=== PATIENT | male | born 1955 | race Asian ===

== ENCOUNTER → 2023-05-15 15:38 | Outpatient (CLI) | payer MEDICARE, OTHER, SELFPAY ==
--- NOTE | 2023-05-15 | DI.MRI.S_ITS ---
PROCEDURE: MR BRAIN (IAC) WWO CON INDICATIONS: Imbalance Dementia TECHNIQUE: Noncontrast sagittal T1 spin echo, axial FLAIR, axial gradient echo, axial diffusion and ADC through the brain. Axial thin-slice 3D CISS, coronal TruFISP, axial T1 spin echo with fat saturation through the internal auditory canals. After the administration of contrast, thin slice axial and coronal T1 spin echo with fat saturation through the internal auditory canals, and axial and coronal and sagittal T1 spin echo with fat saturation through the brain. COMPARISON: None. FINDINGS: Image quality: Excellent. Cerebellopontine angles: No cerebellopontine angle masses. Inner ear structures appear normally formed. No suspicious enhancement in the internal auditory canal or along the course of the 7th cranial nerve. CSF spaces: Ventricles are normal in size and shape. No extra-axial fluid collections. Basal cisterns are patent. Brain: No intracranial bleeds or mass effects. Palencia-white matter interface is intact. No abnormal intracranial enhancement. Diffusion weighted images demonstrate no acute ischemic insults. Brainstem appears normal. Normal intravascular flow voids are present. Note is made of age-appropriate brain parenchymal volume loss and chronic small vessel ischemic changes. Skull and face: Calvarial marrow signal is normal. Orbits appear normal. Sinuses: Sinuses and mastoids are clear. IMPRESSION: No significant abnormality is seen. Specifically, no masses or abnormal enhancement are seen within the cerebellopontine angle cisterns or within the internal auditory canals. Dictated by: Messi Black M.D. on 05/15/2023 at 16:18 Approved by: Messi Black M.D. on 05/15/2023 at 16:19
== END ==
PROVIDERS: Referring Provider Psychiatry & Neurology Neurology; Visit Provider Psychiatry & Neurology Neurology
DX: R41.89 Other symptoms and signs involving cognitive functions and awareness (principal); R26.89 Other abnormalities of gait and mobility
CPT/HCPCS: 70553; A9579

== ENCOUNTER 2025-10-14 16:50 | Emergency (ER) | payer MEDICARE, SELFPAY ==
--- OUTSIDE RECORDS SUMMARY | 2025-04-16 | XMS_ITS ---
Author Organization [facility] Address [address] [place] [id number] Care Team Providers Care Revenue Cycle Consultant Name Role Phone Mayito Main Primary Care Provider [phone] REASON FOR VISIT PTG Medications Medication SIG (Take, Route, Frequency, Duration) Notes Start Date End Date Status Silodosin 8 MG 1 capsule with a meal Orally Once a day Active Finasteride 5 MG 1 tablet Orally Once a day; Duration: 30 day(s) Active OXcarbazepine 300 MG 1 tablet Orally Twice a day Active Clindamycin HCl 300 MG 1 capsule Orally every 6 hrs; Duration: 10 days Not-Taking Trintellix 20 MG 1 tablet Orally Once a day; Duration: 30 day(s) Active Lexapro 10 MG 1 tablet Orally Once a day; Duration: 30 day(s) Not-Taking Trintellix 5 MG 1 tablet Orally Once a day; Duration: 30 day(s) Not-Taking Prostate Support 300-15 MG as directed Orally OTC Not-Takin g Euthyrox 50 MCG TAKE 1 TABLET BY MOUTH ONCE DAILY IN THE MORNING; Duration: 30 Not-Taking Cipro 500 MG 1 tablet Orally every 12 hrs; Duration: 14 days 01/02/2022 Not-Taking Vascepa 1 GM 2 capsules with meals Orally Twice a day; Duration: 30 day(s) Not-Taking Lipitor 40 MG 1 tablet Orally Once a day; Duration: 30 day(s) Not-Taking FLUoxetine HCl 40 MG 1 capsule Orally Once a day; Duration: 30 day(s) Not-Taking Atenolol 25 MG 1 tablet Orally Once a day; Duration: 90 days Not-Taking Lovaza 1 GM 2 capsules Orally Twice a day; Duration: 90 days Not-Taking Boulder 3 1200 MG 1 capsule Orally Once a day Not-Taking Magnesium Citrate 250 MG as directed Orally Not-Takin g Allopurinol 100 MG Take 1 tablet by mouth twice daily; Duration: 30 days due for annual Active Losartan Potassium 50 MG Take 1 tablet by mouth twice daily; Duration: 90 Active Levothyroxine Sodium 50 MCG 1 tab Orally Once a day; Duration: 90 days Active Atorvastatin Calcium 40 MG 1 tablet Orally Once a day; Duration: 90 days 09/12/2021 Active Atenolol 25 MG Take 1 tablet by mouth Orally TWICE DAILY Active Medrol 4 MG as directed Orally as directed; Duration: 6 days 01/14/2024 Active Zetia 10 MG 1 tablet Orally Once a day; Duration: 90 days Active Lutein 20 MG 1 capsule with a meal Orally Once a day Active lamoTRIgine 200 MG 1 tablet Orally Once a day Active Pantoprazole Sodium 40 MG 1 tablet Orally Once a day; Duration: 90 days Active Multivitamin . 1 po qd Activ e Flomax 0.4 MG 1 capsule Orally Once a day; Duration: 30 day(s) Active Aller-Jules 10mg 1 po qd Activ e Encounters Encounter Location Date Provider Diagnosis Mayito Main MD [address] [place] [id number] 04/16/2025 Mayito Main Plan Of Treatment No Information Progress Notes * Brendon HIDALGO ADOB:1955 (70 yo M)Acc No.[id number]:04/16/2025 Nurse Only Visit Patient: Brendon BANERJEE Provider: S tong Main MD :1955 A ge:70 Y S ex:Male Date:04/16/2025 Address:[address] [place], [place] [id number] Subjective: * Chief Complaints: * 1 . PTG. * Medical History: * Medications: T aking Silodosin 8 MG Capsule 1 capsule with a meal Orally Once a day , Taking OXcarbazepine 300 MG Tablet 1 tablet Orally Twice a day , Taking Finasteride 5 MG Tablet 1 tablet Orally Once a day , Taking Trintellix 20 MG Tablet 1 tablet Orally Once a day , Taking Flomax 0.4 MG Capsule 1 capsule Orally Once a day , Taking Aller-Jules 10mg tablet 1 po qd , Taking Pantoprazole Sodium 40 MG Tablet Delayed Release 1 tablet Orally Once a day , Taking lamoTRIgine 200 MG Tablet 1 tablet Orally Once a day , Taking Multivitamin . tablet 1 po qd , Taking Lutein 20 MG Capsule 1 capsule with a meal Orally Once a day , Taking Atenolol 25 MG Tablet Take 1 tablet by mouth Orally TWICE DAILY , Taking Atorvastatin Calcium 40 MG Tablet 1 tablet Orally Once a day , Taking Zetia 10 MG Tablet 1 tablet Orally Once a day , Taking Medrol 4 MG Tablet Therapy Pack as directed Orally as directed , Taking Levothyroxine Sodium 50 MCG Tablet 1 tab Orally Once a day , Taking Losartan Potassium 50 MG Tablet Take 1 tablet by mouth twice daily , Taking Allopurinol 100 MG Tablet Take 1 tablet by mouth twice daily , Notes to Pharmacist: due for annual, Not-Taking Magnesium Citrate 250 MG Capsule as directed Orally , Not-Taking [place]oulder 3 1200 MG Capsule 1 capsule Orally Once a day , Not-Taking Lovaza 1 GM Capsule 2 capsules Orally Twice a day , Not-Taking Atenolol 25 MG Tablet 1 tablet Orally Once a day , Not-Taking Lipitor 40 MG Tablet 1 tablet Orally Once a day , Not-Taking Vascepa 1 GM Capsule 2 capsules with meals Orally Twice a day , Not-Taking FLUoxetine HCl 40 MG Capsule 1 capsule Orally Once a day , Not-Taking Lexapro 10 MG Tablet 1 tablet Orally Once a day , Not-Taking Cipro 500 MG Tablet 1 tablet Orally every 12 hrs , Not-Taking Euthyrox 50 MCG Tablet TAKE 1 TABLET BY MOUTH ONCE DAILY IN THE MORNING , Not-Taking Prostate Support 300-15 MG Tablet as directed Orally , Notes to Pharmacist: OTC, Not- Taking Trintellix 5 MG Tablet 1 tablet Orally Once a day , Not-Taking Clindamycin HCl 300 MG Capsule 1 capsule Orally every 6 hrs Objective: * Vitals: Assessment: Plan: * Treatment: * Billing Information: * Visit Code: * Procedure Codes: * Electronic signature of Mayito Main MD on 10/14/2025 at 04:52 PM PST Sign off status: Pending * Provider: Glenna Main MD Date: 0 04/16/2025 Generated for Su keating/Allie/Krzysztof on: 1 04:52 PM PST
[2025-10-14 17:00] VITALS: BP 125/64; PULSE 70; RESP 16; TEMP 36.3; O2SAT 97; BMI 28.1
--- NOTE | 2025-10-14 17:04 | DI.RAD.S_ITS ---
PROCEDURE: XR CHEST 1V INDICATIONS: Chest Pain TECHNIQUE: One view of the chest was acquired. COMPARISON: None. FINDINGS: Surgical changes and devices: None. Lungs and pleura: Lungs are clear. No pleural effusions or pneumothorax. Mediastinum: Mediastinal contours appear normal. Heart size is normal. Bones and chest wall: No suspicious bony lesions. Overlying soft tissues appear unremarkable. IMPRESSION: No acute cardiopulmonary abnormality is seen. Dictated by: Fitz Landaverde M.D. on 10/14/2025 at 16:54 Approved by: Fitz Landaverde M.D. on 10/14/2025 at 16:54
--- NOTE | 2025-10-14 17:04 | EKG_ITS ---
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
[2025-10-14 17:20] LABS: Add Manual Diff / Slide Review NO; Hematocrit 37.3 % (41-53); Hemoglobin 13.0 g/dL (13.5-17.5); Lymphocytes Absolute Auto 1400 /uL (1100-4500); Mean Corpuscular HGB Conc 34.7 % (30-36); Mean Corpuscular Hemoglobin 33.2 PG (26-34); Mean Corpuscular Volume 95.5 fL (80-100); Platelet Count 212 X10^3/uL (150-400)
[2025-10-14 17:30] LABS: INR 0.9 (0.9-1.3); Prothrombin Time 10.6 SECONDS (9.4-12.5)
[2025-10-14 17:33] LABS: PTT Partial Thromboplastin Tim 30 SECONDS (25.1-36.5)
[2025-10-14 17:35] LABS: Alanine Aminotransferase 32 IU/L (<50); Albumin 4.4 g/dL (3.5-5.0); Albumin Globulin Ratio 1.4 (1.0-2.8); Alkaline Phosphatase 91 U/L (38-126); Blood Urea Nitrogen 14 mg/dL (9-20); Calcium 8.9 mg/dL (8.4-10.2); Carbon Dioxide 23 mmol/L (22-32); Chloride 104 mmol/L (98-107); Creatine Kinase 105 U/L (55-170); Estimated Glomerular Filt Rate > 60 mL/min (>60); Globulin 3.1 g/dL (1.7-4.1); Glucose 166 mg/dL (70-99); HEMOLYSIS 33 (0-50); Lipase 148 U/L (23-300); Magnesium 1.9 mg/dL (1.6-2.3); Potassium 3.8 mmol/L (3.4-5.1); Sodium 135 mmol/L (137-145); Total Protein 7.5 g/dL (6.3-8.2)
[2025-10-14 17:47] LABS: NT-proBNP (BNP-Adult 18+) 92 pg/mL (<125); Troponin I < 0.012 ng/mL (0.01-0.034)
--- NOTE | 2025-10-14 18:07 | ED_ITS ---
HPI - Arrhythmia/Palpitations General Chief Complaint: Arrhythmia/Palpitations Stated Complaint: Arrhythmia Time Seen by Provider: 10/14/25 16:54 Source: patient Mode of arrival: Ambulatory History of Present Illness HPI narrative: 70-year-old male with history of coronary artery disease status post recent coronary artery stenting LAD on 09/26/2025 at [facility] Dr Wang, did well, taking his Plavix, tonight having irregular heartbeat sensation, Apple watch indicated that he might be having bigeminy, total ventricular response rate not slow or fast. Denies chest pain, also denies sensation of jaw pain that he has had with his previous angina symptoms. Denies also having pain to anterior chest, back, shoulder blade, shoulder, arm, neck. Symptoms seemed to be resolved without specific treatment. Extensive coronary artery disease history, all coronary interventions at [facility]: first interventions stent x2 placed RCA 2002, in January 2025 had 2 new stents placed RCA, March 2025 had PTCA of new and older stents same RCA, June 2025 had angina symptoms with diagnostic catheterization but no interventions at that time, July 2025 had 2nd opinion by cardiology Dr. Wang at [facility], RCA determined to be okay, 70% lad lesion noted, no interventions at that time. More recently they earlier this month on 09/2025 saw his vending route driver Dr. Wang in follow up, was having upper jaw pain, subsequent catheterization 09/26/2025 [facility] showed some narrowing of LAD which was stented, his last coronary artery intervention. Related Data Allergies Allergy/AdvReac Type Severity Reaction Status Date / Time No Known Drug Allergies Allergy Verified 10/14/25 17:00 Patient History Social History Smoking Status: Never smoker Smoking Status: Never smoker Exam Narrative Exam Narrative: GENERAL: Well-developed patient, in mild distress. HEAD: Atraumatic. Normocephalic. EYES: Pupils equal round and reactive. Extraocular motions intact. No scleral icterus. No injection or drainage. ENT: Nose without bleeding, purulent drainage. Throat without erythema, tonsillar hypertrophy or exudate. Airway patent. NECK: Trachea midline. Non tender CARDIOVASCULAR: Regular rate and rhythm without murmurs, gallops, or rubs. RESPIRATORY: Clear to auscultation. Breath sounds equal bilaterally. No wheezes, rales, or rhonchi. GASTROINTESTINAL: Abdomen soft, non-tender, nondistended. EXTREMITIES: No edema or joint tenderness. BACK: Nontender without deformity or crepitance. No flank tenderness. NEURO: AOx3. Motor functions grossly nonfocal. SKIN: No rash or erythema of visible areas Initial Vital Signs Initial Vital Signs: Vital Signs Temperature 97.3 F L 10/14/25 17:00 Pulse Rate 70 10/14/25 17:00 Respiratory Rate 16 10/14/25 17:00 Blood Pressure 125/64 10/14/25 17:00 Pulse Oximetry 97 10/14/25 17:00 Oxygen Delivery Method Room Air 10/14/25 17:00 Course Orders Ordered: Discontinued Medications Aspirin (Aspirin 81 Mg Chew Tab) 324 mg PO NOW ONE Stop: 10/14/25 17:05 Vital Signs Vital signs: Vital Signs - 8 hr 10/14/25 21:26 Pulse Rate 60 Respiratory Rate 16 Blood Pressure 151/67 H Pulse Oximetry 98 Oxygen Delivery Method Room Air MDM - Arrhythmia/Palpitations Lab Data Attestation: I reviewed the patient's lab results. Lab results narrative: White blood cell count 5000, hemoglobin 13.0, platelets adequate. Glucose 166. Normal renal function, serum CO2, serum potassium. Sodium 135 slight low. Liver functions and lipase normal. Initial troponin negative/unmeasurable. 10/14/25 17:11 10/14/25 17:11 Labs: Lab Results 10/14/25 10/14/25 Range/Units 17:11 19:24 WBC 5.0 (4.5-11.0) X10^3/uL RBC 3.91 L (4.5-5.9) X10^6/uL Hgb 13.0 L (13.5-17.5) g/dL Hct 37.3 L (41-53) % MCV 95.5 (80-100) fL MCH 33.2 (26-34) PG MCHC 34.7 (30-36) % RDW 14.1 (11.6-14.8) % Plt Count 212 (150-400) X10^3/uL Neut % (Auto) 54.1 (50-75) % Lymph % (Auto) 27.4 (25-40) % [place] % (Auto) 9.6 (3-14) % Eos % (Auto) 7.9 H (2-4) % Baso % (Auto) 1.0 (0-2) % Neut # (Auto) 2700 (1615-3927) /uL Lymph # (Auto) 1400 (4533-6189) /uL [place] # (Auto) 500 (0-900) /uL Eos # (Auto) 400 (0-450) /uL Baso # (Auto) 100 (0-100) /uL PT 10.6 (9.4-12.5) SECONDS INR 0.9 (0.9-1.3) APTT 30 (25.1-36.5) SECONDS Sodium 135 L (137-145) mmol/L Potassium 3.8 (3.4-5.1) mmol/L Chloride 104 (98-107) mmol/L Carbon Dioxide 23 (22-32) mmol/L BUN 14 (9-20) mg/dL Creatinine 0.62 L (0.66-1.25) mg/dL Estimated GFR > 60 (>60) mL/min BUN/Creatinine Ratio 22.6 H (6-22) Glucose 166 H (70-99) mg/dL Calcium 8.9 (8.4-10.2) mg/dL Magnesium 1.9 (1.6-2.3) mg/dL Total Bilirubin 0.2 (0.2-1.3) mg/dL AST 34 (17-59) IU/L ALT 32 (<50) IU/L Alkaline Phosphatase 91 (38-126) U/L Total Creatine Kinase 105 (55-170) U/L Troponin I < 0.012 < 0.012 (0.01-0.034) ng/mL NT-Pro-B Natriuret Pep 92 (<125) pg/mL Total Protein 7.5 (6.3-8.2) g/dL Albumin 4.4 (3.5-5.0) g/dL Globulin 3.1 (1.7-4.1) g/dL Albumin/Globulin Ratio 1.4 (1.0-2.8) Lipase 148 (23-300) U/L Imaging Data Chest x-ray: Radiologist's Impresson: [address] [address] XRay Report Signed Patient: Brendon Hidalgo MR#: [id number] : 1955 Acct:[id number] Age/Sex: 70 / M Date of Service: 10/14/25 Loc: ED Accession Number: [id number] Procedure: XR chest 1V Ordering Provider: Heike Monique MD PROCEDURE: XR CHEST 1V INDICATIONS: Chest Pain TECHNIQUE: One view of the chest was acquired. COMPARISON: None. FINDINGS: Surgical changes and devices: None. Lungs and pleura: Lungs are clear. No pleural effusions or pneumothorax. Mediastinum: Mediastinal contours appear normal. Heart size is normal. Bones and chest wall: No suspicious bony lesions. Overlying soft tissues appear unremarkable. IMPRESSION: No acute cardiopulmonary abnormality is seen. Dictated by: Fitz Landaverde M.D. on 10/14/2025 at 16:54 Approved by: Fitz Landaverde M.D. on 10/14/2025 at 16:54 ECG Data Attestation: I personally reviewed and interpreted this ECG as follows: Interpretation: 1703, normal sinus rhythm with rate of 71, no obvious ST segment elevation or depression changes. T-wave inversion lead 3 but upright in FM and lead to other contiguous inferior leads. MD 158, QRS 88, QTC 434. 1944, normal sinus rhythm with rate of 60, no obvious ST segment elevation or depression changes. No changes inferior leads from previous study. MD 166, QRS 92, QTC 438. MDM Narrative Medical decision making narrative: 70-year-old with palpitation symptoms, Apple watch indicated bigeminy, extensive CAD history, had most recent coronary intervention with LAD stenting on 09/26/2025 at [facility]. Not currently having any chest pain, nor is he having any jaw pain anginal equivalent that he had with his previous unstable angina earlier this month. EKG shows sinus rhythm with inferior lead to T-wave inversion but other contiguous inferior leads normal, no ST segment elevation or depression changes obvious. Chest x-ray, no acute changes. See radiology report. Lab data initial: White blood cell count 5000, hemoglobin 13.0, platelets adequate. Glucose 166. Normal renal function, serum CO2, serum potassium. Sodium 135 slight low. Liver functions and lipase normal. Initial troponin negative/unmeasurable. Repeat troponin also negative/unmeasurable. We will reach out to [facility] cardiology to see if they have any other further recommendations. 2100, case discussed with on-call cardiology [facility] Dr. Aaron, heart rate 60 noted, we will not add beta-philomena (nor increase of beta-philomena dose if already taking), leave medication regimen the same for now, continue Plavix. He will leave internal message with Dr. Wang, follow up planned for 10/23/2025, believes patient can be discharged home now, patient can contact their office on Sunday to see if earlier follow up in indicated. Relayed above recommendations to patient/ at bedside, they expressed understanding. Discharged home. Continue medications regimen the same for now. Consider recording irregular heartbeat symptoms, Apple watch readings, duration and timing, associated symptoms, if relevant to relay on Sunday to his vending route driver. Precautions discussed. Discharge Plan Departure Patient Disposition: Home Clinical Impression: Palpitations, Bigeminy Activity Restrictions/Additional Instructions: History of coronary artery disease, prior 4 stents in right coronary artery, more recent single stent placed left anterior descending artery earlier this month 09/26/2025 at [facility], awaiting follow up Cardiology appointment 10/23/2025. Tonight with irregular heartbeat sensation, Apple watch suggested bigeminy rhythm, nonsustained, no associated passing out or near passing out like symptoms, nor any associated anginal like symptoms that preceded your recent LAD stenting episode. EKG and serial blood tests not suggestive of heart attack at this time. Vital signs stable. Heart rate 60. Case was discussed with on-call cardiology Dr. Aaron at [facility], who feels that you should leave your medication regimen the same for now, he made notations to relayed to your main vending route driver Dr. Wang, to follow up as planned 10/23/2025. Contact the office of your vending route driver on Sunday to see if follow up date should be moved up any earlier. Return to this/nearest emergency department for any change worsening symptoms or any concerns prior. Consider keeping a diary of any recurrent bigeminy or other heart rhythm issues that you feel are detected by your apple watch her otherwise sensing, note the date and time induration. If symptoms are severe or worsening recheck this/nearest emergency department. Otherwise your follow up diary information might be useful for your vending route driver in follow up. Stand Alone Forms: Patient Portal/API
--- NOTE | 2025-10-14 18:14 | EKG_ITS ---
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
[2025-10-14 20:11] VITALS: PULSE 62; O2SAT 97
[2025-10-14 20:21] LABS: Troponin I < 0.012 ng/mL (0.01-0.034)
[2025-10-14 20:22] VITALS: BP 177/81; PULSE 60; RESP 16; O2SAT 96
[2025-10-14 21:26] VITALS: BP 151/67; PULSE 60; RESP 16; O2SAT 98
== END 2025-10-14 21:26 | disposition home or self-care (01) ==
PROVIDERS: Student in an Organized Health Care Education/Training Program; Emergency Provider Emergency Medicine
DX: R00.2 Palpitations (principal); Z86.79 Personal history of other diseases of the circulatory system
CPT/HCPCS: 36415; 71045; 80053; 82550; 83690; 83735; 83880; 84484; 85025; 85610; 85730; 93005; 99283; 99284